=== PATIENT | male | born 1950 | race African-American/Black ===

== ENCOUNTER 2022-09-05 09:07 | Emergency (ER) | payer BC, OTHER ==
[2022-09-05 09:12] VITALS: BP 169/97; PULSE 71; RESP 18; TEMP 98.1; BMI 25.5
== END 2022-09-05 12:07 | disposition home or self-care (01) ==
LOC: JER 09:07
DX: M25.561 Pain in right knee (principal)
CPT/HCPCS: 73562-TC-RT-FY; 99283-25

== ENCOUNTER 2022-09-16 04:09 | Day surgery (SDC) | payer OTHER ==
[2022-09-10 17:40] VITALS: BMI 25.5
[~2022-09-16 04:09] MED LIST: BUPIVACAINE HCL/PF 0.5% (5MG/ML) 10 ML VIAL IJ ONE; LIDOCAINE 1%/EPI 1:100000 (50 ML MULTI DOSE VIAL) NR ONE; LIDOCAINE 2%/EPINEPHRINE 1:100000 (50 ML MD VIAL) INF ONE
[2022-09-16] MEDS ORDERED: ONDANSETRON 4 MG/2 ML VIAL ONE (12:35)
[2022-09-16] MEDS ORDERED: PROPOFOL 20 ML ONE (12:35)
[2022-09-16] MEDS ORDERED: LIDOCAINE HCL/PF 2% SDV 5ML VIAL ONE (12:35)
[2022-09-16] MEDS ORDERED: DEXAMETHASONE SOD PHOSPHATE 4 MG/1 ML VIAL ONE (12:35)
[2022-09-16] MEDS ORDERED: MIDAZOLAM HCL 2 MG/2 ML SINGLE DOSE VIAL ONE (12:35)
[2022-09-16] MEDS ORDERED: LIDOCAINE 1%/EPI 1:100000 (50 ML MULTI DOSE VIAL) NR ONE (13:10)
[2022-09-16] MEDS ORDERED: LIDOCAINE 2%/EPINEPHRINE 1:100000 (50 ML MD VIAL) INF ONE (13:25)
[2022-09-16] MEDS ORDERED: BUPIVACAINE HCL/PF 0.5% (5MG/ML) 10 ML VIAL IJ ONE (13:25)
[2022-09-16] MEDS ORDERED: ONDANSETRON 4 MG/2 ML VIAL IVPUSH PRN (13:42)
[2022-09-16] MEDS ORDERED: ACETAMINOPHEN 1000 MG/100 ML BAG IVPB ONE ×2 (13:42→14:01)
[2022-09-16] MEDS ORDERED: oxyCODONE HCL 5 MG TABLET PO PRN (13:42)
[2022-09-16] MEDS ORDERED: LACTATED RINGERS SOLUTION 1,000 ML IV SCH (13:45)
[2022-09-16 15:10] VITALS: RESP 18
[2022-09-16 17:45] VITALS: BP 163/90; PULSE 83; TEMP 97.8
== END 2022-09-16 17:05 | disposition home or self-care (01) ==
LOC: JASU-SURG 04:09
PROVIDERS: ATTEND Orthopaedic Surgery
PROC: 0SBC4ZZ Excision of Right Knee Joint, Percutaneous Endoscopic Approach (ICD-10-PCS; 2022-09-16)
PROC: 0S9C4ZZ Drainage of Right Knee Joint, Percutaneous Endoscopic Approach (ICD-10-PCS; 2022-09-16)
PROC: 0SBC4ZZ Excision of Right Knee Joint, Percutaneous Endoscopic Approach (ICD-10-PCS; principal; 2022-09-16 12:45)
DX: M23.261 Derangement of other lateral meniscus due to old tear or injury, right knee (principal); M23.251 Derangement of posterior horn of lateral meniscus due to old tear or injury, right knee; M71.21 Synovial cyst of popliteal space [Baker], right knee
CPT/HCPCS: 94760

== ENCOUNTER 2023-08-06 02:01 | Emergency (ER) | payer OTHER ==
[2023-08-06 02:13] VITALS: BP 167/102; PULSE 70; RESP 18; TEMP 98.1; BMI 25.7
[2023-08-06] MEDS ORDERED: ACETAMINOPHEN 500 MG TABLET (FP) ONE (03:04)
[2023-08-06] MEDS: ACETAMINOPHEN 500 MG TABLET (FP) PO ONE (03:06)
== END 2023-08-06 06:08 | disposition home or self-care (01) ==
LOC: JER 02:01
DX: M54.2 Cervicalgia (principal); M48.02 Spinal stenosis, cervical region
CPT/HCPCS: 72125-TC; 99284-25